=== PATIENT | male | born 1955 | race Hispanic/Latino ===

== ENCOUNTER → 2017-09-19 | Outpatient (CLI) | payer BC ==
[~2017-09-19] MED LIST: ASPIRIN CHEW81 MG PO; FOLIC ACID1 MG PO; HYDROCHLOROTH12.5 MG PO; METHOTREXATE2.5 MG PO; OXAPROZIN600 MG PO; PANTOPRAZOLE SO40 MG PO; TRAMADOL HCL50 M1 PO; Z.0.ATORVASTATIN CA2; Z.0.LISINOPRIL20 MG PO
--- NOTE | 2017-09-19 13:52 | Diagnostic Imaging Report ---
EXAMINATION: CHEST 2 VIEWS 09/19/2017 12:00 AM COMPARISON: 02/19/2016 INDICATION: M05.79 DISCUSSION: LINES: None. LUNGS: The lungs are well inflated and clear. No pneumonia or pulmonary edema. PLEURA: No pleural effusion or pneumothorax. HEART AND MEDIASTINUM: The heart is enlarged. Calcifications of the thoracic aorta. BONES AND SOFT TISSUES: No acute osseous lesion. Multilevel degenerative changes of the thoracic spine IMPRESSION: No acute cardiopulmonary disease. Chong Kaplan MD Signed by: Dr. Chong Kaplan M.D. on 09/19/2017 1:48 PM
== END ==
LOC: RAD 12:24
PROVIDERS: ATTEND Internal Medicine
DX: M05.79 Rheumatoid arthritis with rheumatoid factor of multiple sites without organ or systems involvement (principal)
CPT/HCPCS: 71046

== ENCOUNTER → 2019-01-31 | Outpatient (CLI) | payer BC ==
--- NOTE | 2019-01-31 09:05 | Diagnostic Imaging Report ---
EXAMINATION: KNEE 1-2 VIEWS BILATERAL INDICATION: Chronic bilateral knee pain COMPARISON: Right knee radiographs of 03/29/2018 FINDINGS: No acute fracture or dislocation. Mild varus angulation at both knee joints. There are moderate to severe patellofemoral and medial compartment predominant degenerative changes of both knees with joint space narrowing and osteophyte formation. Small bilateral suprapatellar joint effusions. IMPRESSION: No acute osseous injury. Moderate to severe patellofemoral and medial compartment predominant degenerative changes of both knees. Signed by: Pierre Dyson MD on 01/31/2019 9:02 AM
== END ==
LOC: RAD 08:08
PROVIDERS: ATTEND Anesthesiology Addiction Medicine
DX: M25.562 Pain in left knee (principal); M25.561 Pain in right knee; M25.462 Effusion, left knee; M25.461 Effusion, right knee